=== PATIENT | female | born 1980 | race African-American/Black ===

== ENCOUNTER 2018-03-08 22:25 | Emergency (ER) | payer OTHER ==
[2018-03-08 22:42] VITALS: BP 109/69; PULSE 79; TEMP 98.3; BMI 30.7
[2018-03-08] MEDS ORDERED: FAMOTIDINE 20 MG/50 ML IVPB 20 MG/50 ML MG IVPB ONE ×2 (23:03→23:24)
[2018-03-08] MEDS ORDERED: MAG HYDROX/AL HYDROX/SIMETH -MYLANTA- ORAL SUSPENSION PO ONE (23:03)
--- NOTE | 2018-03-08 23:03 | PDOC ---
History of Present Illness - General Chief Complaint: Pain, Acute Stated Complaint: PAIN Time Seen by Provider: 03/08/18 22:43 History Source: Patient Exam Limitations: No Limitations - History of Present Illness Travel History: No Initial Comments: 03/09/18 01:32 Best Contact:[phone] PCP:Dr. Rogel Pmhx:0 Pshx: 2013/c section Allergies:0 FH:0 Social Hx: Cigarettes/ 0 Alcohol/ 0 Drugs/0 LMP: 02/19/2018 37-year-old female presents to the emergency department complaining of epigastric discomfort with burning mid chest and soured taste in her mouth 2 days after eating acidic food. Patient states she was diagnosed with heartburn back in December 2017 after having an endoscopy done by her cloth finishing range back tender. Patient was given Protonix 40 mg daily but states she has not been taking it for the past month. Patient states pain subsides when she takes a Protonix but exacerbates after eating acidic food. Past History - Past Medical History Allergies/Adverse Reactions: Allergies Allergy/AdvReac Type Severity Reaction Status Date / Time No Known Allergies Allergy Verified 03/09/18 00:43 Home Medications: Ambulatory Orders Pantoprazole Sodium [Protonix] 40 mg PO DAILY 03/09/18 Anemia: Yes Asthma: No Cancer: No Cardiac Disorders: No CVA: No COPD: No GI Disorders: Yes (GERD) Disorders: No HTN: No Hypercholesterolemia: No Kidney Stones: No - Suicide/Smoking/Psychosocial Hx Smoking History: Never smoked Have you smoked in the past 12 months: No Information on smoking cessation initiated: No Hx Alcohol Use: No Drug/Substance Use Hx: No Substance Use Type: None Review of Systems - Review of Systems Able to Perform ROS?: Yes Comments:: 03/09/18 01:30 CONSTITUTIONAL: Absent: fever, chills, diaphoresis, generalized weakness, malaise, loss of appetite HEENT: "Sour taste" Absent: rhinorrhea, nasal congestion, throat pain, throat swelling, difficulty swallowing, mouth swelling, ear pain, eye pain, visual Changes CARDIOVASCULAR: Absent: chest pain, loss of consciousness, palpitations, irregular heart rate, peripheral edema RESPIRATORY: Absent: cough, shortness of breath, dyspnea with exertion, orthopnea, wheezing, stridor, hemoptysis GASTROINTESTINAL: +epigastric pain, burning sensaton to mid chest Absent: abdominal distension, nausea, vomiting, diarrhea, constipation, melena , hematochezia GENITOURINARY: Absent: dysuria, frequency, urgency, hesitancy, hematuria, flank pain, genital pain MUSCULOSKELETAL: Absent: myalgia, arthralgia, joint swelling SKIN: Absent: rash, itching, pallor HEMATOLOGIC/IMMUNOLOGIC: Absent: easy bleeding, easy bruising, lymphadenopathy, frequent infections ENDOCRINE: Absent: unexplained weight gain, unexplained weight loss, heat intolerance, cold intolerance NEUROLOGIC: Absent: headache, focal weakness or paresthesias, dizziness, unsteady gait, seizure, mental status changes, bladder or bowel incontinence Is the patient limited Lithuanian proficient: No *Physical Exam - Vital Signs Last Vital Signs Temp Pulse Resp BP Pulse Ox 98.3 F 79 20 109/69 100 03/08/18 22:37 03/08/18 22:37 03/08/18 22:37 03/08/18 22:37 03/08/18 22:37 - Physical Exam Comments: 03/09/18 01:30 GENERAL: Well developed, well nourished. Awake and alert. No acute distress. HEENT: Normocephalic, atraumatic. PERRLA, EOMI. No conjunctival pallor. Sclera are non- icteric. Moist mucous membranes. Oropharynx is clear. NECK: Supple. Full ROM. No JVD. Carotid pulses 2+ and symmetric, without bruits. No thyromegaly. No lymphadenopathy. CARDIOVASCULAR: Regular rate and rhythm. No murmurs, rubs, or gallops. Distal pulses are 2+ and symmetric. PULMONARY: No evidence of respiratory distress. Lungs clear to auscultation bilaterally. No wheezing, rales or rhonchi. ABDOMINAL: +epigastric pain Soft. Non-distended. No rebound or guarding. No organomegaly. Normoactive bowel sounds. MUSCULOSKELETAL Normal range of motion at all joints. No bony deformities or tenderness. No CVA tenderness. EXTREMITIES: No cyanosis. No clubbing. No edema. No calf tenderness. SKIN: Warm and dry. Normal capillary refill. No rashes. No jaundice. Heart Score/ECG Review - History History: Slightly suspicious - Electrocardiogram EKG: Normal - Age Age: >/= 65 - Risk Factors Based on the list above the patient has:: 1-2 risk factors - Troponin Troponin: </= normal limit - Score Heart Score - Total: 3 ED Treatment Course - LABORATORY CBC & Chemistry Diagram: 03/08/18 23:02 03/08/18 23:02 Progress Note - Progress Note Progress Note: Patient states she is completely pain-free after Pepcid 20 mg IV/Maalox 30 mg by mouth Patient states she wishes to be discharged. *DC/Admit/Observation/Transfer Diagnosis at time of Disposition: GERD (gastroesophageal reflux disease) Qualifiers: Esophagitis presence: without esophagitis Qualified Code(s): K21.9 - Gastro- esophageal reflux disease without esophagitis - Discharge Dispostion Disposition: HOME Condition at time of disposition: Stable Decision to Admit order: No - Referrals Referrals: Keshia Khalil [Primary Care Provider] - Sebas Sung MD [Staff Physician] - - Patient Instructions Printed Discharge Instructions: DI for Gastroesophageal Reflux Disease (GERD) Additional Instructions: Avoid acidic food Increase fluids Be sure to follow with your cloth finishing range back tender on Sunday or Sunday Take your Protonix as directed/which was prescribed by her cloth finishing range back tender Return back to the ER for severe/persistent or worsening symptoms - Post Discharge Activity
[2018-03-08 23:24] LABS: BASO % 1.7 % (0-2.0); EOS % 1.1 % (0-4.5); HEMATOCRIT 36.2 % (32.4-45.2); HEMOGLOBIN 11.8 GM/dL (10.7-15.3); MCH 27.4 pg (25.7-33.7); MCHC 32.4 g/dl (32.0-36.0); MEAN CELL VOLUME 84.4 fl (80-96); MEAN PLT VOLUME 7.1 fl (7.5-11.1); MONO % 8.4 % (3.8-10.2); NEUT % 45.8 % (42.8-82.8); PLATELET COUNT 383 K/MM3 (134-434); RBC 4.29 M/mm3 (3.60-5.2); RDW 15.2 % (11.6-15.6); WHITE BLOOD COUNT 8.5 K/mm3 (4.0-10.0)
[2018-03-08] MEDS ORDERED: MAG HYDROX/AL HYDROX/SIMETH 30 ML UNIT-DOSE CUP ONE (23:24)
[2018-03-08 23:57] LABS: ALBUMIN 3.8 g/dl (3.4-5.0); ALK PHOS 83 U/L (45-117); ANION GAP 7 MMOL/L (8-16); BILIRUBIN,TOTAL 0.3 mg/dL (0.2-1); BLOOD UREA NITROGEN 22 mg/dL (7-18); CHLORIDE 106 mmol/L (98-107); CO2 26 mmol/L (21-32); GLUCOSE,RANDOM 95 mg/dL (74-106); POTASSIUM 4.3 mmol/L (3.5-5.1); SGOT/AST 11 U/L (15-37); SGPT/ALT 18 U/L (13-61); SODIUM 139 mmol/L (136-145); TOT PROT 7.9 g/dl (6.4-8.2)
--- NOTE | 2018-03-09 11:56 | EKG ---
Test Reason : Blood Pressure : / mmHG Vent. Rate : 074 BPM Atrial Rate : 074 BPM P-R Int : 152 ms QRS Dur : 074 ms QT Int : 374 ms P-R-T Axes : 054 039 043 degrees QTc Int : 415 ms NORMAL SINUS RHYTHM NORMAL ECG NO PREVIOUS ECGS AVAILABLE Confirmed by RITESH HAMPTON MD ([id number]) on 03/09/2018 11:55:51 AM Referred By: GHANSHYAM Confirmed By:RITESH HAMPTON MD
== END 2018-03-09 00:55 | disposition home or self-care (01) ==
LOC: JER 22:25
PROC: 3E033GC Introduction of Other Therapeutic Substance into Peripheral Vein, Percutaneous Approach (ICD-10-PCS; principal; 2018-03-08)
DX: K21.9 Gastro-esophageal reflux disease without esophagitis (principal)
CPT/HCPCS: 36415; 80053; 84703; 85025; 93005; 93010; 96365; 99282-25

== ENCOUNTER 2019-02-11 11:41 | Emergency (ER) | payer OTHER ==
[2019-02-11 12:10] VITALS: BP 117/66; PULSE 90; TEMP 98.6; BMI 30.9
--- NOTE | 2019-02-11 12:18 | PDOC ---
History of Present Illness - General Chief Complaint: Cold Symptoms Stated Complaint: COUGH Time Seen by Provider: 02/11/19 11:51 - History of Present Illness Initial Comments: 02/11/19 12:16 38-year-old female without comorbidities presents for evaluation of cough and cold-like symptoms without systemic symptoms x4 days Past History - Past Medical History Allergies/Adverse Reactions: Allergies Allergy/AdvReac Type Severity Reaction Status Date / Time No Known Allergies Allergy Verified 02/11/19 11:50 Home Medications: Ambulatory Orders Pantoprazole Sodium [Protonix] 40 mg PO DAILY 03/09/18 Anemia: Yes Asthma: No Cancer: No Cardiac Disorders: No CVA: No COPD: No GI Disorders: Yes (GERD) Disorders: No HTN: No Hypercholesterolemia: No Kidney Stones: No - Psycho Social/Smoking Cessation Hx Smoking History: Never smoked Have you smoked in the past 12 months: No Hx Alcohol Use: No Drug/Substance Use Hx: No Substance Use Type: None Review of Systems - Review of Systems Constitutional: No: Fever Respiratory: Yes: Cough *Physical Exam - Vital Signs Last Vital Signs Temp Pulse Resp BP Pulse Ox 98.6 F 90 18 117/66 02/11/19 11:46 02/11/19 11:46 02/11/19 11:46 02/11/19 11:46 - Physical Exam Comments: 02/11/19 12:17 GENERAL: The patient is awake, alert, and fully oriented, in no acute distress. HEAD: Normal with no signs of trauma. EYES: sclera anicteric, conjunctiva clear. ENT: Ears normal NECK: Normal range of motion LUNGS: Breath sounds equal, clear to auscultation bilaterally. No wheezes, and no crackles. HEART: S1 and S2 without murmur, rub or gallop. ABDOMEN: Soft, nontender, normoactive bowel sounds. No guarding, no rebound. No masses. EXTREMITIES: Normal range of motion, no edema. No clubbing or cyanosis. No cords, erythema, or tenderness. NEUROLOGICAL: Cranial nerves II through XII grossly intact. Normal speech, normal gait. PSYCH: Normal mood, normal affect. SKIN: Warm, Dry, normal turgor, no rashes or lesions noted. Medical Decision Making - Medical Decision Making 02/11/19 12:17 Benign examination viral upper respiratory infection supportive care follow-up with PCP Discharge - Discharge Information Problems reviewed: Yes Clinical Impression/Diagnosis: Viral URI Condition: Stable Disposition: HOME - Admission No - Follow up/Referral - Patient Discharge Instructions Patient Printed Discharge Instructions: DI for Viral Upper Respiratory Infection -- Adult Additional Instructions: Return to the emergency room for worsening symptoms. Please follow-up with your primary care physician in 1 to 2 days for further evaluation and treatment options. - Post Discharge Activity
== END 2019-02-11 12:40 | disposition home or self-care (01) ==
LOC: JERFT 11:41 → JER 11:41 → JERFT 12:40
DX: J06.9 Acute upper respiratory infection, unspecified (principal); B97.89 Other viral agents as the cause of diseases classified elsewhere; K21.9 Gastro-esophageal reflux disease without esophagitis; D64.9 Anemia, unspecified
CPT/HCPCS: 99281-25

== ENCOUNTER 2019-03-09 00:42 | Emergency (ER) | payer OTHER ==
[2019-03-09 00:52] VITALS: BP 114/69; PULSE 78; TEMP 98.7; BMI 31.3
--- NOTE | 2019-03-09 02:34 | PDOC ---
History of Present Illness - General Chief Complaint: Lightheaded Stated Complaint: DIZZINESS History Source: Patient Exam Limitations: No Limitations - History of Present Illness Initial Comments: 03/09/19 02:52 Pt states that when she stands up she feels that the room spins and she sees dark spots. Timing/Duration: 24 hours Severity: mild Past History - Travel Traveled outside of the country in the last 30 days: No Close contact w/someone who was outside of country & ill: No - Past Medical History Allergies/Adverse Reactions: Allergies Allergy/AdvReac Type Severity Reaction Status Date / Time No Known Allergies Allergy Verified 03/09/19 00:47 Home Medications: Ambulatory Orders Pantoprazole Sodium [Protonix] 40 mg PO DAILY 03/09/18 Anemia: Yes Asthma: No Cancer: No Cardiac Disorders: No CVA: No COPD: No GI Disorders: Yes (GERD) Disorders: No HTN: No Hypercholesterolemia: No Kidney Stones: No - Psycho Social/Smoking Cessation Hx Smoking History: Never smoked Have you smoked in the past 12 months: No Hx Alcohol Use: No Drug/Substance Use Hx: No Substance Use Type: None Review of Systems - Review of Systems Able to Perform ROS?: Yes Is the patient limited Malay proficient: No Constitutional: No: Symptoms Reported, See HPI, Chills, Diaphoresis, Fever, Loss of Appetite, Malaise, Night Sweats, Weakness, Weight Stable, Unintentional Wgt. Loss, Unexplained wgt Loss, Other HEENTM: No: Symptoms Reported, See HPI, Eye Pain, Blurred Vision, Tearing, Recent change in vision, Double Vision, Cataracts, Ear Pain, Ocular Prothesis, Ear Discharge, Nose Pain, Nose Congestion, Tinnitus, Nose Bleeding, Hearing Loss , Throat Pain, Throat Swelling, Mouth Pain, Dental Problems, Difficulty Swallowing, Mouth Swelling, Other Respiratory: No: Symptoms reported, See HPI, Cough, Orthopnea, Shortness of Breath, SOB with Exertion, SOB at Rest, Stridor, Wheezing, Productive cough, Hemoptysis, Other Cardiac (ROS): No: Symptoms Reported, See HPI, Chest Pain, Edema, Irregular Heart Rate, Lightheadedness, Palpitations, Syncope, Chest Tightness, Other ABD/GI: No: Symptoms Reported, See HPI, Abdominal Distended, Abd. Pain w/ defecation, Blood Streaked Bowels, Constipated, Diarrhea, Difficulty Swallowing , Nausea, Poor Appetite, Poor Fluid Intake, Rectal Bleeding, Vomiting, Indigestion, Abdominal cramping, Tarry Stools, Other : No: Symptoms Reported, See HPI, Burning, Dysuria, Discharge, Frequency, Flank Pain, Hematuria, Incontinence, Pain, Urgency, Testicular Mass, Testicular Swelling, Lesions, Testicular Pain, Other Musculoskeletal: No: Symptoms Reported, See HPI, Back Pain, Gout, Joint Pain, Joint Swelling, Muscle Pain, Muscle Weakness, Neck Pain, Joint Stiffness, Other Integumentary: No: Symptoms Reported, See HPI, Bruising, Change in Color, Change in Hair/Nails, Dryness, Erythema, Flushing, Lesions, Lumps, Pallor, Pruritus, Rash, Sweating, Other Neurological: Yes: Dizziness. No: Symptoms reported, See HPI, Headache, Numbness, Paresthesia, Pre-Existing Deficit, Seizure, Tingling, Tremors, Weakness, Unsteady Gait, Ataxia, Other Psychiatric: No: Anxiety, Depression, Frequent Crying, Stressors, Sleep Pattern Change, Emotional Problems, Mood Swings, Change in Appetite, Other Endocrine: No: Symptoms Reported, See HPI, Excessive Sweating, Flushing, Intolerance to Cold, Intolerance to Heat, Increased Hunger, Increased Thirst, Increased Urine, Unexplained Weight Gain, Unexplained Weight Loss, Change in Weight, Other Hematologic/Lymphatic: No: Symptoms Reported, See HPI, Anemia, Blood Clots, Easy Bleeding, Easy Bruising, Bleeding Diathesis, Lymph Node Abnormalities, Swollen Glands, Other *Physical Exam - Vital Signs Last Vital Signs Temp Pulse Resp BP Pulse Ox 98.7 F 78 20 114/69 99 03/09/19 00:45 03/09/19 00:45 03/09/19 00:45 03/09/19 00:45 03/09/19 00:45 - Physical Exam General Appearance: Yes: Nourished, Appropriately Dressed. No: Apparent Distress HEENT: positive: EOMI, YASEMIN, Normal ENT Inspection, Normal Voice, TMs Normal, Pharynx Normal Neck: positive: Trachea midline, Normal Thyroid. negative: Tender Respiratory/Chest: positive: Lungs Clear, Normal Breath Sounds. negative: Chest Tender, Respiratory Distress Cardiovascular: positive: Regular Rhythm, Regular Rate, S1, S2 Gastrointestinal/Abdominal: positive: Normal Bowel Sounds, Flat, Soft. negative : Tender Musculoskeletal: positive: Normal Inspection, CVA Tenderness Extremity: positive: Normal Capillary Refill, Normal Inspection, Normal Range of Motion, Pelvis Stable. 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 She is feeling better; she has anemia compared to last year he HB has dropped. She feels better with meclizine and this is likely vertigo, as pt had a viral illness last week. 03/09/19 06:00 Pt admits that she didt eat well or sleep well and that may be causing her illness. She undestands that she is more anemic than before and she will follow with her PMD She changed PMDs and she has not gottne t Discharge - Discharge Information Problems reviewed: Yes Clinical Impression/Diagnosis: Vertigo, Anemia Condition: Stable Disposition: HOME - Admission No - Follow up/Referral - Patient Discharge Instructions Patient Printed Discharge Instructions: Anemia: How Food and Vitamins Can Help , Vertigo - Post Discharge Activity
[2019-03-09] MEDS ORDERED: MECLIZINE HCL 25 MG TABLET (FP) PO ONE (02:52)
[2019-03-09] MEDS ORDERED: SODIUM CHLORIDE 0.9% 500 ML INFUS.BAG IV ONE (03:09)
[2019-03-09] MEDS ORDERED: MECLIZINE HCL 25 MG TABLET (FP) ONE (03:21)
[2019-03-09 03:47] LABS: BASO % 1.5 % (0-2.0); EOS % 1.4 % (0-4.5); HEMATOCRIT 31.4 % (32.4-45.2); HEMOGLOBIN 9.9 GM/dL (10.7-15.3); LYMPH % 45.3 % (8-40); MCH 24.3 pg (25.7-33.7); MCHC 31.5 g/dl (32.0-36.0); MEAN CELL VOLUME 77.1 fl (80-96); MEAN PLT VOLUME 8.1 fl (7.5-11.1); NEUT % 42.8 % (42.8-82.8); PLATELET COUNT 368 K/MM3 (134-434); RBC 4.07 M/mm3 (3.60-5.2); RDW 18.6 % (11.6-15.6); WHITE BLOOD COUNT 9.1 K/mm3 (4.0-10.0)
[2019-03-09 04:10] LABS: ALBUMIN 3.5 g/dl (3.4-5.0); BILIRUBIN,TOTAL 0.4 mg/dL (0.2-1); BLOOD UREA NITROGEN 10.2 mg/dL (7-18); CALCIUM 8.8 mg/dL (8.5-10.1); CREATININE 0.7 mg/dL (0.55-1.3); POTASSIUM 4.8 mmol/L (3.5-5.1); TOT PROT 7.4 g/dl (6.4-8.2)
--- NOTE | 2019-03-09 13:45 | EKG ---
Test Reason : Blood Pressure : / mmHG Vent. Rate : 069 BPM Atrial Rate : 069 BPM P-R Int : 154 ms QRS Dur : 084 ms QT Int : 410 ms P-R-T Axes : 047 045 049 degrees QTc Int : 439 ms NORMAL SINUS RHYTHM NORMAL ECG WHEN COMPARED WITH ECG OF 08-MAR-2018 23:14, NO SIGNIFICANT CHANGE WAS FOUND Confirmed by MD Nazario Edward ([id number]) on 03/09/2019 1:45:04 PM Referred By: Confirmed By:Kayode Nazario MD
== END 2019-03-09 05:03 | disposition home or self-care (01) ==
LOC: JER 00:42
DX: R42 Dizziness and giddiness (principal); D64.9 Anemia, unspecified; K21.9 Gastro-esophageal reflux disease without esophagitis
CPT/HCPCS: 36415; 80053; 85025; 93005; 93010; 99282-25

== ENCOUNTER 2020-01-20 20:01 | Emergency (ER) | payer OTHER ==
--- NOTE | 2020-01-20 20:21 | PDOC ---
Rapid Medical Evaluation Time Seen by Provider: 01/20/20 20:17 Medical Evaluation: Allergies Allergy/AdvReac Type Severity Reaction Status Date / Time No Known Allergies Allergy Verified 06/27/19 13:22 01/20/20 20:17 Pt presents for evaluation of "not feeling well". Has no specific complaint Exam: NAD, Breathing comfortably on room air. RRR Orders: Defer to provider Pt to proceed to the ER for further evaluation Discharge Disposition - Diagnosis Fatigue - Referrals - Patient Instructions - Post Discharge Activity
[2020-01-20 20:22] VITALS: BP 132/79; PULSE 92; TEMP 97.8; BMI 35.5
--- NOTE | 2020-01-20 20:35 | PDOC ---
History of Present Illness - General Chief Complaint: Cold Symptoms Stated Complaint: NASAL CONGESTION Time Seen by Provider: 01/20/20 20:17 - History of Present Illness Initial Comments: 01/20/20 20:33 39-year-old female no comorbidities assures me there is no chance of presents for evaluation of exacerbation of allergic symptoms which are seasonal for her x1 day no systemic symptoms Past History - Medical History Allergies/Adverse Reactions: Allergies Allergy/AdvReac Type Severity Reaction Status Date / Time No Known Allergies Allergy Verified 06/27/19 13:22 Home Medications: Ambulatory Orders Pantoprazole Sodium [Protonix] 40 mg PO DAILY 03/09/18 Benzonatate [Tessalon Pearls -] 100 mg PO Q8H PRN #21 capsule 06/27/19 Ipratropium [place]on 2 spray NS BID PRN 5 Days #1 spray 06/27/19 Meloxicam 15 mg PO DAILY PRN #16 tablet 06/27/19 Azithromycin [Zithromax 250mg Tablets -] 250 mg PO UTDICT #6 tab 07/21/19 Fluticasone Prop 0.05% Nasal [Flonase -] 1 - 2 spray NS BID #1 spray.pump 07/21/19 Loratadine [Claritin -] 10 mg PO DAILY #30 tablet 07/21/19 Budesonide [Rhinocort Allergy] 1 spray NS ONCE #1 spray.pump 01/20/20 Cetirizine HCl/Pseudoephedrine [Zyrtec-D Tablet] 1 each PO DAILY #30 tab.er.12h 01/20/20 Anemia: Yes Asthma: No Cancer: No Cardiac Disorders: No CVA: No COPD: No GI Disorders: Yes (GERD) Disorders: No HTN: No Hypercholesterolemia: No Kidney Stones: No - Reproductive History Is Patient Now?: No - Psycho-Social/Smoking History Smoking History: Never smoked Have you smoked in the past 12 months: No - Substance Abuse Hx (Audit-C & DAST Scrn) How often the patient has a drink containing alcohol: Never Score: In Men: 4 or > Positive; In Women: 3 or > Positive: 0 Screen Result (Pos requires Nsg. Audit-10AR): Negative Review of Systems - Review of Systems Constitutional: No: Chills, Fever, Malaise, Night Sweats HEENTM: Yes: Nose Congestion Respiratory: No: Cough *Physical Exam - Vital Signs Last Vital Signs Temp Pulse Resp BP Pulse Ox 97.8 F 92 H 20 132/79 100 01/20/20 20:19 01/20/20 20:19 01/20/20 20:19 01/20/20 20:19 01/20/20 20:19 - Physical Exam General Appearance: Yes: Nourished, Appropriately Dressed. No: Apparent Distress HEENT: positive: Symmetrical Neck: positive: Trachea midline, Normal Thyroid, Supple. negative: Tender, Lymphadenopathy (L), Rigidity Respiratory/Chest: positive: Normal Breath Sounds. 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 They are in agreement with the treatment plan all questions were answered to their satisfaction. Understanding for follow-up without fail was also conveyed to the patient. Aga in they are in agreement. 01/20/20 20:34 Patient is not breast-feeding Discharge - Discharge Information Problems reviewed: Yes Clinical Impression/Diagnosis: Seasonal allergies Clinical Impression/Diagnosis: (Ruled Out): Fatigue Condition: Stable Disposition: HOME - Admission No - Additional Discharge Information Prescriptions: Budesonide [Rhinocort Allergy] 1 spray NS ONCE #1 spray.pump Cetirizine HCl/Pseudoephedrine [Zyrtec-D Tablet] 1 each PO DAILY #30 tab.er.12h - Follow up/Referral Referrals: Glendy Whitmore MD [Staff Physician] - - Patient Discharge Instructions Additional Instructions: Please take the seasonal allergy medication and nasal spray as directed and as needed. Return to the emergency room for worsening symptoms and without fail follow-up with your primary care physician in 1 to 2 days for further evaluation and treatment options. - Post Discharge Activity
== END 2020-01-20 20:40 | disposition home or self-care (01) ==
LOC: JERFT 20:01
DX: J30.2 Other seasonal allergic rhinitis (principal)
CPT/HCPCS: 99281-25

== ENCOUNTER 2020-01-22 23:46 | Emergency (ER) | payer OTHER ==
[2020-01-23 00:01] VITALS: BP 122/82; PULSE 86; TEMP 98.3; BMI 30.7
--- NOTE | 2020-01-23 00:20 | PDOC ---
History of Present Illness - General Chief Complaint: Vomiting Blood Stated Complaint: VOMITING BLOOD Time Seen by Provider: 01/23/20 00:02 - History of Present Illness Initial Comments: 01/23/20 00:14 HPI: 39 y/o F with no pmh presenting with soft palate irritiation. She was eating chicken and thinks the bone irritated the roof of her mouth. She checked her mouth with her finger and felt bumps and self induced emesis. She reports the weird sensation and wanted to get evaluated. No choking, SOB, chest pain, nausea, sore throat. Her symptoms are improved. PMHx: as noted above ROS: as noted SHx: Denies tobacco use; no alcohol use; no rec drugs Allergies: NKDA ROS: GENERAL/CONSTITUTIONAL: No fever or chills. No weakness. HEAD, EYES, EARS, NOSE AND THROAT: No change in vision. No ear pain or discharge. No sore throat. CARDIOVASCULAR: No chest pain or shortness of breath RESPIRATORY: No cough, wheezing, or hemoptysis. GASTROINTESTINAL: No nausea, vomiting, diarrhea or constipation. GENITOURINARY: No dysuria, frequency, or change in urination. MUSCULOSKELETAL: No joint or muscle swelling or pain. No neck or back pain. SKIN: No rash NEUROLOGIC: No headache, vertigo, loss of consciousness, or change in strength/s ensation. ENDOCRINE: No increased thirst. No abnormal weight change HEMATOLOGIC/LYMPHATIC: No anemia, easy bleeding, or history of blood clots. ALLERGIC/IMMUNOLOGIC: No hives or skin allergy. PE: GENERAL: Awake, alert, and fully oriented, no acute distress HEAD: No signs of trauma, normocephalic, atraumatic EYES: EOMI, sclera anicteric, conjunctiva clear ENT: Auricles normal inspection, hearing grossly normal, nares patent, oropharynx with abrasion on soft palate without an lacerations or cuts or active bleeding NECK: Normal ROM, no lymphadenopathy, no stridor LUNGS: No increased work of breathing, symmetrical chest rise, clear to auscultation bilaterally, no wheezes, crackles or rhonchi; no stridor HEART: Regular rate, regular rhythm, normal S1 and S2, no murmur, peripheral pulses 2+ and equal bilaterally. ABDOMEN: Soft, nondistended, nontender. No guarding, no rebound. No masses. No CVAT MUSCULOSKELETAL: FROM NEUROLOGICAL: Cranial nerves II through XII grossly intact. Normal speech, stable gait, no focal sensorimotor deficits SKIN: Warm, Dry, normal turgor, no rashes or lesions noted Past History - Medical History Allergies/Adverse Reactions: Allergies Allergy/AdvReac Type Severity Reaction Status Date / Time No Known Allergies Allergy Verified 01/22/20 23:59 Home Medications: Ambulatory Orders Pantoprazole Sodium [Protonix] 40 mg PO DAILY 03/09/18 Benzonatate [Tessalon Pearls -] 100 mg PO Q8H PRN #21 capsule 06/27/19 Ipratropium [place] 2 spray NS BID PRN 5 Days #1 spray 06/27/19 Meloxicam 15 mg PO DAILY PRN #16 tablet 06/27/19 Azithromycin [Zithromax 250mg Tablets -] 250 mg PO UTDICT #6 tab 07/21/19 Fluticasone Prop 0.05% Nasal [Flonase -] 1 - 2 spray NS BID #1 spray.pump 07/21/19 Loratadine [Claritin -] 10 mg PO DAILY #30 tablet 07/21/19 Budesonide [Rhinocort Allergy] 1 spray NS ONCE #1 spray.pump 01/20/20 Cetirizine HCl/Pseudoephedrine [Zyrtec-D Tablet] 1 each PO DAILY #30 tab.er.12h 01/20/20 Anemia: Yes Asthma: No Cancer: No Cardiac Disorders: No CVA: No COPD: No GI Disorders: Yes (GERD) Disorders: No HTN: No Hypercholesterolemia: No Kidney Stones: No - Reproductive History Is Patient Now?: No - Psycho-Social/Smoking History Smoking History: Never smoked Have you smoked in the past 12 months: No Information on smoking cessation initiated: No - Substance Abuse Hx (Audit-C & DAST Scrn) How often the patient has a drink containing alcohol: Never Score: In Men: 4 or > Positive; In Women: 3 or > Positive: 0 Screen Result (Pos requires Nsg. Audit-10AR): Negative In the last yr the pt used illegal drug/Rx for NonMed reason: No Score: Yes response is considered Positive: 0 Screen Result (Positive result requires Nsg. DAST-10): Negative *Physical Exam - Vital Signs Last Vital Signs Temp Pulse Resp BP Pulse Ox 98.3 F 86 20 122/82 100 01/22/20 23:59 01/22/20 23:59 01/22/20 23:59 01/22/20 23:59 01/22/20 23:59 Medical Decision Making - Medical Decision Making 01/23/20 00:24 39 y/o F with no pmh presenting with soft palate irritiation after eating chicken with bones. VSS, AF. PE with oropharynx with abrasion on soft palate without an lacerations or cuts or active bleeding -reassurance -DC with instructions to avoid foods that will exacerbate discomfort Discharge - Discharge Information Problems reviewed: Yes Clinical Impression/Diagnosis: Soft palate injury Qualifiers: Encounter type: initial encounter Qualified Code(s): S09.93XA - Unspecified injury of face, initial encounter Condition: Stable Disposition: HOME - Follow up/Referral - Patient Discharge Instructions Additional Instructions: Additional Instructions: Please return to the emergency department with any new or worsening symptoms or concerns including worsening pain, persistent vomiting. Please follow up with your primary care physician within 1 week as needed for re-evaluation of soft palate abrasion You may drink warm tea and soup and eat soft foods to decreased irritation of abrasion (banana, rice, pudding). Please avoid hard foods, spicy food, food high in citrus, rough/coarse foods. You may taken tylenol or motrin for discomfort as needed - Post Discharge Activity
--- NOTE | 2020-01-23 00:39 | PDOC ---
Attending Attestation - Resident Resident Name: Alexsandra Romero - ED Attending Attestation I have performed the following: I have examined & evaluated the patient, The case was reviewed & discussed with the resident, I agree w/resident's findings & plan, Exceptions are as noted - HPI HPI: 01/23/20 00:51 See resident HPI - Physicial Exam PE: 01/23/20 00:51 Agree with documented exam - Medical Decision Making 01/23/20 00:51 Soft palate injury, superficial dc with return instructions and supportive care Discharge - Discharge Information Problems reviewed: Yes Clinical Impression/Diagnosis: Soft palate injury Qualifiers: Encounter type: initial encounter Qualified Code(s): S09.93XA - Unspecified injury of face, initial encounter Condition: Stable Disposition: HOME - Follow up/Referral - Patient Discharge Instructions Additional Instructions: Additional Instructions: Please return to the emergency department with any new or worsening symptoms or concerns including worsening pain, persistent vomiting. Please follow up with your primary care physician within 1 week as needed for re-evaluation of soft palate abrasion You may drink warm tea and soup and eat soft foods to decreased irritation of abrasion (banana, rice, pudding). Please avoid hard foods, spicy food, food high in citrus, rough/coarse foods. You may taken tylenol or motrin for discomfort as needed - Post Discharge Activity
== END 2020-01-23 00:38 | disposition home or self-care (01) ==
LOC: JER 23:46
DX: S09.93XA Unspecified injury of face, initial encounter (principal)
CPT/HCPCS: 99284-25

== ENCOUNTER 2020-04-03 23:49 | Emergency (ER) | payer OTHER ==
[2020-04-04 00:27] VITALS: BP 124/51; PULSE 89; TEMP 97.2; BMI 30.9
[2020-04-04] MEDS ORDERED: FAMOTIDINE 20 MG/50 ML IVPB 20 MG/50 ML MG IVPB ONE ×2 (01:14→01:38)
[2020-04-04] MEDS ORDERED: MAG HYDROX/AL HYDROX/SIMETH 30 ML UNIT-DOSE CUP PO ONE (01:14)
[2020-04-04] MEDS ORDERED: SUCRALFATE 1 GM TABLET (FP) PO SCH (01:15)
[2020-04-04] MEDS ORDERED: MAG HYDROX/AL HYDROX/SIMETH 30 ML UNIT-DOSE CUP ONE (01:38)
[2020-04-04 01:44] LABS: BASO % 2.2 % (0-2.0); EOS % 1.4 % (0-4.5); HEMATOCRIT 33.5 % (32.4-45.2); HEMOGLOBIN 10.7 GM/dL (10.7-15.3); LYMPH % 38.4 % (8-40); MCH 25.5 pg (25.7-33.7); MCHC 31.8 g/dl (32.0-36.0); MEAN CELL VOLUME 80.2 fl (80-96); MEAN PLT VOLUME 7.6 fl (7.5-11.1); MONO % 7.9 % (3.8-10.2); NEUT % 50.1 % (42.8-82.8); PLATELET COUNT 455 K/MM3 (134-434); RBC 4.18 M/mm3 (3.60-5.2); RDW 18.6 % (11.6-15.6); WHITE BLOOD COUNT 8.6 K/mm3 (4.0-10.0)
[2020-04-04 01:58] LABS: CHLORIDE 107 mmol/L (98-107); POTASSIUM 3.9 mmol/L (3.5-5.1); SODIUM 141 mmol/L (136-145)
[2020-04-04 02:00] LABS: CALCIUM 8.9 mg/dL (8.5-10.1)
[2020-04-04 02:01] LABS: ALBUMIN 3.6 g/dl (3.4-5.0); ANION GAP 9 MMOL/L (8-16); BLOOD UREA NITROGEN 9.2 mg/dL (7-18); CO2 25 mmol/L (21-32); GLUCOSE,RANDOM 105 mg/dL (74-106); LIPASE 168 U/L (73-393)
[2020-04-04 02:04] LABS: CREATININE 0.8 mg/dL (0.55-1.3); SGOT/AST 13 U/L (15-37); SGPT/ALT 16 U/L (13-61)
[2020-04-04 02:06] LABS: BILIRUBIN,TOTAL 0.2 mg/dL (0.2-1); TOT PROT 7.4 g/dl (6.4-8.2)
[2020-04-04 02:07] LABS: ALK PHOS 78 U/L (45-117)
== END 2020-04-04 02:49 | disposition home or self-care (01) ==
LOC: JER 23:49
PROC: 3E033GC Introduction of Other Therapeutic Substance into Peripheral Vein, Percutaneous Approach (ICD-10-PCS; principal; 2020-04-03)
DX: R10.13 Epigastric pain (principal)
CPT/HCPCS: 36415; 80053; 82550; 83690; 84484; 85025; 93005; 93010; 99285-25

== ENCOUNTER 2020-05-30 11:25 | Emergency (ER) | payer OTHER ==
[2020-05-30 11:32] VITALS: BP 123/81; PULSE 84; TEMP 97.5; BMI 35.5
[2020-05-30] MEDS ORDERED: IBUPROFEN 600 MG TABLET (FP) PO ONE ×2 (11:48→11:51)
== END 2020-05-30 12:03 | disposition home or self-care (01) ==
LOC: JERFT 11:25
DX: N64.4 Mastodynia (principal)
CPT/HCPCS: 99284-25

== ENCOUNTER 2020-07-23 12:10 | Emergency (ER) | payer OTHER ==
[2020-07-23 12:32] VITALS: BP 132/83; PULSE 105; TEMP 99.3; BMI 33.7
== END 2020-07-23 13:05 | disposition home or self-care (01) ==
LOC: JERFT 12:10 → JER 12:10 → JERFT 13:05
DX: Z11.52 Encounter for screening for COVID-19 (principal)
CPT/HCPCS: 99283-25; C9803; U0003; U0005

== ENCOUNTER 2020-07-26 11:36 | Emergency (ER) | payer OTHER ==
[2020-07-26 12:12] VITALS: BP 132/65; PULSE 85; TEMP 98.4; BMI 35.3
[2020-07-26 18:48] LABS: BASO % 0.9 % (0-2.0); EOS % 0.1 % (0-4.5); HEMATOCRIT 32.2 % (32.4-45.2); HEMOGLOBIN 10.2 GM/dL (10.7-15.3); LYMPH % 35.1 % (8-40); MCH 24.2 pg (25.7-33.7); MCHC 31.6 g/dl (32.0-36.0); MEAN CELL VOLUME 76.6 fl (80-96); MEAN PLT VOLUME 7.7 fl (7.5-11.1); MONO % 7.5 % (3.8-10.2); NEUT % 56.4 % (42.8-82.8); PLATELET COUNT 559 K/MM3 (134-434); RBC 4.21 M/mm3 (3.60-5.2); WHITE BLOOD COUNT 7.9 K/mm3 (4.0-10.0)
[2020-07-26 19:12] LABS: CALCIUM 9.3 mg/dL (8.5-10.1)
[2020-07-26 19:13] LABS: ALBUMIN 3.9 g/dl (3.4-5.0); BLOOD UREA NITROGEN 3.8 mg/dL (7-18)
[2020-07-26 19:16] LABS: CREATININE 0.7 mg/dL (0.55-1.3)
[2020-07-26 19:17] LABS: BILIRUBIN,TOTAL 0.5 mg/dL (0.2-1); TOT PROT 7.7 g/dl (6.4-8.2)
== END 2020-07-26 20:35 | disposition home or self-care (01) ==
LOC: JERFT 11:36
DX: J31.0 Chronic rhinitis (principal)
CPT/HCPCS: 36415; 80053; 84439; 84443; 84481; 85025; 99283-25

== ENCOUNTER 2020-10-23 21:30 | Emergency (ER) | payer OTHER ==
[2020-10-23 21:40] VITALS: BP 123/84; PULSE 84; TEMP 98.5; BMI 33.7
[2020-10-23] MEDS ORDERED: ONDANSETRON *ODT* 4 MG TABLET SL ONE (22:22)
[2020-10-23] MEDS ORDERED: ONDANSETRON *ODT* 4 MG TABLET ONE (22:28)
[2020-10-23 22:45] LABS: BASO % 0.7 % (0-2.0); EOS % 0.1 % (0-4.5); HEMATOCRIT 37.1 % (32.4-45.2); HEMOGLOBIN 12.2 GM/dL (10.7-15.3); LYMPH % 32.4 % (8-40); MCH 26.8 pg (25.7-33.7); MCHC 32.9 g/dl (32.0-36.0); MEAN CELL VOLUME 81.5 fl (80-96); MONO % 7.4 % (3.8-10.2); NEUT % 59.4 % (42.8-82.8); PLATELET COUNT 431 10^3/uL (134-434); RBC 4.56 M/mm3 (3.60-5.2); RDW 19.3 % (11.6-15.6); WHITE BLOOD COUNT 10.2 K/mm3 (4.0-10.0)
[2020-10-23 23:09] LABS: CHLORIDE 109 mmol/L (98-107); SODIUM 140 mmol/L (136-145)
[2020-10-23 23:12] LABS: ALBUMIN 3.7 g/dl (3.4-5.0); ANION GAP 6 MMOL/L (8-16); BLOOD UREA NITROGEN 12.1 mg/dL (7-18); CO2 25 mmol/L (21-32); GLUCOSE,RANDOM 103 mg/dL (74-106)
[2020-10-23 23:15] LABS: CREATININE 0.9 mg/dL (0.55-1.3); SGOT/AST 15 U/L (15-37); SGPT/ALT 30 U/L (13-61)
[2020-10-23 23:16] LABS: BILIRUBIN,TOTAL 0.3 mg/dL (0.2-1)
[2020-10-23 23:17] LABS: ALK PHOS 80 U/L (45-117)
== END 2020-10-23 23:46 | disposition home or self-care (01) ==
LOC: JER 21:30
DX: R42 Dizziness and giddiness (principal)
CPT/HCPCS: 36415; 80053; 84443; 84484; 84703; 85025; 93005; 93010; 99284-25; Q0162

== ENCOUNTER 2021-01-16 17:40 | Emergency (ER) | payer OTHER ==
[2021-01-16 17:59] VITALS: BP 130/72; PULSE 82; TEMP 98; BMI 33.0
[2021-01-16] MEDS ORDERED: LACTULOSE 20 GM/30 ML UDC (FOR ORAL USE ONLY) PO ONE (19:50)
[2021-01-16] MEDS ORDERED: LACTULOSE 20 GM/30 ML UDC (FOR ORAL USE ONLY) ONE (20:09)
== END 2021-01-16 20:10 | disposition home or self-care (01) ==
LOC: JER 17:40
DX: K59.00 Constipation, unspecified (principal)
CPT/HCPCS: 99283-25

== ENCOUNTER 2021-04-23 14:54 | Emergency (ER) | payer OTHER ==
[2021-04-23 16:19] VITALS: BP 115/72; PULSE 73; TEMP 98; BMI 32.3
== END 2021-04-23 17:06 | disposition home or self-care (01) ==
LOC: JER 14:54
DX: R05.1 Acute cough (principal); M79.10 Myalgia, unspecified site; R09.81 Nasal congestion
CPT/HCPCS: 87804; 99283-25; C9803-CS; U0003; U0005

== ENCOUNTER 2021-05-11 12:26 | Emergency (ER) | payer OTHER ==
[2021-05-11 12:50] VITALS: BP 134/89; PULSE 84; TEMP 98.7; BMI 32.3
[2021-05-11] MEDS ORDERED: SODIUM CHLORIDE 1,000 ML IV STA (13:46)
[2021-05-11 14:48] LABS: BASO % 0.9 % (0-2.0); EOS % 0.6 % (0-4.5); HEMATOCRIT 38.2 % (32.4-45.2); HEMOGLOBIN 12.5 GM/dL (10.7-15.3); MCH 28.1 pg (25.7-33.7); MCHC 32.7 g/dl (32.0-36.0); MEAN CELL VOLUME 85.9 fl (80-96); MONO % 8.9 % (3.8-10.2); NEUT % 46.6 % (42.8-82.8); PLATELET COUNT 401 10^3/uL (134-434); RBC 4.45 M/mm3 (3.60-5.2); RDW 14.8 % (11.6-15.6); WHITE BLOOD COUNT 6.8 K/mm3 (4.0-10.0)
[2021-05-11 15:16] LABS: CHLORIDE 108 mmol/L (98-107); SODIUM 138 mmol/L (136-145)
[2021-05-11 15:18] LABS: CALCIUM 9.6 mg/dL (8.5-10.1)
[2021-05-11 15:19] LABS: ALBUMIN 3.9 g/dl (3.4-5.0); ANION GAP 7 MMOL/L (8-16); BLOOD UREA NITROGEN 14.1 mg/dL (7-18); CO2 24 mmol/L (21-32); GLUCOSE,RANDOM 87 mg/dL (74-106)
[2021-05-11 15:22] LABS: CREATININE 0.7 mg/dL (0.55-1.3); SGOT/AST 21 U/L (15-37)
[2021-05-11 15:23] LABS: BILIRUBIN,TOTAL 0.8 mg/dL (0.2-1); TOT PROT 7.6 g/dl (6.4-8.2)
[2021-05-11 15:24] LABS: ALK PHOS 68 U/L (45-117)
[2021-05-11 15:27] LABS: SGPT/ALT 26 U/L (13-61)
== END 2021-05-11 18:50 | disposition home or self-care (01) ==
LOC: JER 12:26
PROC: 3E0337Z Introduction of Electrolytic and Water Balance Substance into Peripheral Vein, Percutaneous Approach (ICD-10-PCS; principal; 2021-05-11)
DX: R07.9 Chest pain, unspecified (principal)
CPT/HCPCS: 36415; 80053; 82550; 84484; 85025; 93005; 93010; 99284-25

== ENCOUNTER 2021-12-09 15:23 | Emergency (ER) | payer OTHER ==
[2021-12-09 15:35] VITALS: BP 130/78; PULSE 66; RESP 16; TEMP 97.8; BMI 30.7
[2021-12-09] MEDS ORDERED: SODIUM CHLORIDE 1,000 ML IV STA (16:35)
[2021-12-09 16:48] LABS: BASO % 1.7 % (0-2.0); EOS % 1.7 % (0-4.5); HEMATOCRIT 35.7 % (32.4-45.2); HEMOGLOBIN 11.6 GM/dL (10.7-15.3); LYMPH % 42.2 % (8-40); MCH 26.5 pg (25.7-33.7); MCHC 32.6 g/dl (32.0-36.0); MEAN CELL VOLUME 81.4 fl (80-96); MONO % 7.9 % (3.8-10.2); NEUT % 46.5 % (42.8-82.8); PLATELET COUNT 510 10^3/uL (134-434); RBC 4.38 M/mm3 (3.60-5.2); RDW 16.3 % (11.6-15.6); WHITE BLOOD COUNT 7.2 K/mm3 (4.0-10.0)
[2021-12-09 17:10] LABS: BLOOD UREA NITROGEN 12.2 mg/dL (7-18); CALCIUM 9.2 mg/dL (8.5-10.1)
[2021-12-09 17:11] LABS: ALBUMIN 3.6 g/dl (3.4-5.0)
[2021-12-09 17:13] LABS: CREATININE 0.8 mg/dL (0.55-1.3)
[2021-12-09 17:15] LABS: BILIRUBIN,TOTAL 0.5 mg/dL (0.2-1); TOT PROT 8.1 g/dl (6.4-8.2)
== END 2021-12-09 19:39 | disposition home or self-care (01) ==
LOC: JERFT 15:23
PROC: 3E0337Z Introduction of Electrolytic and Water Balance Substance into Peripheral Vein, Percutaneous Approach (ICD-10-PCS; principal; 2021-12-09)
DX: B34.9 Viral infection, unspecified (principal)
CPT/HCPCS: 0241U-QW; 36415; 80053; 85025; 99284-25

== ENCOUNTER 2023-02-01 11:36 | Emergency (ER) | payer OTHER ==
[2023-02-01 11:50] VITALS: BP 107/75; PULSE 69; RESP 18; TEMP 98.1; BMI 33.0
== END 2023-02-01 12:53 | disposition home or self-care (01) ==
LOC: JER 11:36 → JERFT 11:36
DX: R05.9 Cough, unspecified (principal); R09.81 Nasal congestion; B34.9 Viral infection, unspecified; Z20.822 Contact with and (suspected) exposure to COVID-19
CPT/HCPCS: 0241U-QW; 99283-25

== ENCOUNTER 2023-03-19 10:47 | Emergency (ER) | payer OTHER ==
[2023-03-19 10:56] VITALS: BP 129/67; PULSE 83; RESP 17; TEMP 99; BMI 31.9
[2023-03-19] MEDS ORDERED: KETOROLAC TROMETHAMINE 30 MG/1 ML VIAL IM ONE (12:48)
[2023-03-19] MEDS ORDERED: KETOROLAC TROMETHAMINE 30 MG/1 ML VIAL ONE (13:12)
== END 2023-03-19 14:45 | disposition home or self-care (01) ==
LOC: JERFT 10:47
PROC: 3E0233Z Introduction of Anti-inflammatory into Muscle, Percutaneous Approach (ICD-10-PCS; principal; 2023-03-19)
DX: M25.512 Pain in left shoulder (principal)
CPT/HCPCS: 73030-TC-LT-FY; 99284-25

== ENCOUNTER 2023-04-18 12:07 | Emergency (ER) | payer OTHER ==
[2023-04-18 12:34] VITALS: BP 113/69; PULSE 82; RESP 18; TEMP 98.8; BMI 32.3
[2023-04-18 14:19] LABS: URINE APPEARANCE CLEAR; URINE BILIRUBIN NEGATIVE (NEGATIVE); URINE COLOR YELLOW; URINE GLUCOSE (UA) NEGATIVE (NEGATIVE); URINE KETONE NEGATIVE (NEGATIVE); URINE LEUK ESTERASE NEGATIVE (NEGATIVE); URINE NITRITE NEGATIVE (NEGATIVE); URINE PROTEIN NEGATIVE (NEGATIVE); URINE UROBILINOGEN 0.2 mg/dL (0.2-1.0)
[2023-04-18 14:22] LABS: HCG,QUALITATIVE URINE Negative
== END 2023-04-18 14:57 | disposition home or self-care (01) ==
LOC: JERFT 12:07
DX: R10.30 Lower abdominal pain, unspecified (principal)
CPT/HCPCS: 81003; 84703; 87086; 99283-25

== ENCOUNTER 2023-07-14 22:51 | Emergency (ER) | payer OTHER ==
[2023-07-14 22:56] VITALS: BP 117/76; PULSE 82; RESP 18; TEMP 97.2; BMI 32.3
[2023-07-14] MEDS ORDERED: IBUPROFEN 600 MG TABLET (FP) PO ONE (23:15)
[2023-07-14] MEDS: IBUPROFEN 600 MG TABLET (FP) PO ONE (23:16)
== END 2023-07-15 00:53 | disposition home or self-care (01) ==
LOC: JER 22:51 → JERFT 22:51 → JER 07-15 00:53
DX: M79.671 Pain in right foot (principal); M79.642 Pain in left hand
CPT/HCPCS: 73630-TC-RT-FY; 99283-25